=== PATIENT | male | born 1995 | race Caucasian/White ===

== ENCOUNTER 2019-08-24 14:18 | Emergency (ER) | payer OTHER ==
[~2019-08-24] VITALS: Ht 182.9 cm; Wt 90.7 kg
[2019-08-24] MEDS ORDERED: IBUPROFEN 800800 M1 PO (15:06)
[2019-08-24] MEDS ORDERED: TRAMADOL 50 MG50 MG PO (15:06)
[2019-08-24 15:11] VITALS: BP 138/78
== END 2019-08-24 15:11 | disposition home or self-care (01) ==
LOC: M.ERS 14:18
DX: M25.562 Pain in left knee (principal); F17.210 Nicotine dependence, cigarettes, uncomplicated